=== PATIENT | female | born 1970 | race Caucasian/White ===

== ENCOUNTER 2017-03-20 18:25 | Emergency (ER) | payer MEDICAID ==
[~2017-03-20] VITALS: Wt 65.0 kg
[~2017-03-20 18:25] MED LIST: CIPR500T21 PO; DOCU-159 PO; FAMO-96 PO
[2017-03-20] MEDS ORDERED: METF1000 PO (22:00)
[2017-03-20] MEDS ORDERED: OMEP20CA16 PO (22:00)
[2017-03-20] MEDS ORDERED: LISI10TA2 PO (22:01)
[2017-03-20] MEDS ORDERED: ATOR10TA65 PO (22:01)
--- NOTE | 2017-03-20 22:17 | ERA ---
ER Documentation Chief Complaint Date/Time DATE: 03/20/17 TIME: 22:17 Chief Complaint Sore throat HPI The patient is a 46-year-old female, presenting with acute sore throat for 1 day , denies fever, chills, neck pain, chest pain, dyspnea, abdominal pain, vomiting , dysuria, diarrhea. She does not smoke nor drink Past medical history: Hypertension, dyslipidemia, diabetes mellitus Past surgical history: Hysterectomy ROS All systems reviewed and are negative except as per history of present illness. Medications Home Meds Active Scripts Ibuprofen* (Ibuprofen*) 600 Mg Tablet, 600 MG PO Q6, #20 TAB Prov:GUIDO BIRD MD 03/20/17 Reported Medications Lisinopril* (Lisinopril*) 10 Mg Tablet, 10 MG PO DAILY, #30 TAB 03/20/17 Atorvastatin Calcium (Atorvastatin Calcium) 10 Mg Tablet, 10 MG PO QHS, #30 TAB 03/20/17 Omeprazole* (Omeprazole*) 20 Mg Capsule.dr, 20 MG PO DAILY, #30 CAP 03/20/17 Metformin Hcl* (Metformin Hcl*) 1,000 Mg Tablet, 1000 MG PO WITH BREAKFAST DINNE , #60 TAB 03/20/17 Discontinued Scripts Ciprofloxacin/Ciprofloxa HCl (Ciprofloxacin ER 500 mg Tablet) 500 Mg Tbmp.24hr, 500 MG PO BID for 7 Days, #14 TAB Prov:MANAGUELOD,MILADIS P ACCESS NURSE 05/04/16 Docusate Sodium* (Docusate Sodium*) 100 Mg Capsule, 100 MG PO BID, #60 CAP Prov:MANAGUELOD,MILADIS P ACCESS NURSE 05/04/16 Famotidine* (Pepcid*) 20 Mg Tablet, 20 MG PO BID for 10 Days, #20 TAB Prov:MANAGUELOD,MILADIS P ACCESS NURSE 05/04/16 Allergies Allergies: Coded Allergies: No Known Drug Allergies (Verified Allergy, Unknown, 03/20/17) PMhx/Soc History of Surgery: No Hx Neurological Disorder: No Hx Respiratory Disorders: No Hx Cardiac Disorders: No Hx Psychiatric Problems: No Hx Miscellaneous Medical Probl: Yes (dm) Hx Alcohol Use: No Hx Substance Use: No Hx Tobacco Use: No Smoking Status: Never smoker Physical Exam Vitals Vital Signs Date Time Temp Pulse Resp B/P Pulse Ox O2 Delivery O2 Flow Rate FiO2 03/20/17 21:45 98.1 77 16 113/77 99 Room Air 03/20/17 18:54 99.1 109 24 171/104 99 Physical Exam Const: No acute distress. Head: Atraumatic. Eyes: Normal Conjunctiva. ENT: Normal External Ears, Nose and Mouth.Normal oropharynx, no erythema, no exudate Neck: Full range of motion. No meningismus. Resp: Clear to auscultation bilaterally. Cardio: Regular rate and rhythm. Abd: Soft, non distended, normal bowel sounds, non tender. Skin: No petechiae or rashes. Back: No midline or flank tenderness. Ext: No cyanosis, or edema. Neur: Awake and alert. No focal deficit Psych: Normal Mood and Affect. Results 24 hrs Laboratory Tests Test 03/20/17 23:05 Bedside Glucose 238mg/dL Current Medications Medications (Trade) Dose Ordered Sig/Aicha Route PRN Reason Start Time Stop Time Status Last Admin Dose Admin Acetaminophen/ Hydrocodone Bitart ([place] (5/325)) 1 tab ONCE ONCE PO 03/20/17 23:00 03/20/17 23:01 DC 03/20/17 23:15 Ondansetron HCl (Zofran Odt) 4 mg ONCE STAT ODT 03/20/17 22:52 03/20/17 22:53 DC 03/20/17 23:14 Procedures/MDM MEDICAL MAKING DECISION: The patient is a 46-year-old male female, presenting with acute sore throat, most likely viral syndrome. She was treated with [place] 5 mg p.o. for pain and Zofran ODT for nausea with good response, Accu-Chek 238 The differential diagnoses considered include but are not limited to pharyngitis , viral syndrome, influenza, pneumonia, anxiety attack, panic attack Departure Diagnosis: Primary Impression: Sore throat (viral) Condition: Good Comments She was discharged with Motrin I discussed the findings with the patient. I advised the patient to follow-up with the primary physician in about 1-2 days, sooner if needed and return if any concern. GUIDO BIRD MD Mar 20, 2017 22:17
[2017-03-20] MEDS ORDERED: ONDANSETRON (ODT) 4 MG TAB ODT STA (22:52)
[2017-03-20] MEDS ORDERED: IBUP-1542 PO (22:54)
[2017-03-20] MEDS ORDERED: HYDROCODONE/APAP (5/325) TAB PO ONE (23:00)
[2017-03-20 23:30] VITALS: BP 98/68; PULSE 88; RESP 15; TEMP 97.9
== END 2017-03-20 23:30 | disposition home or self-care (01) ==
LOC: FTE 18:25 → E/R 23:30
DX: J02.9 Acute pharyngitis, unspecified (principal); E11.9 Type 2 diabetes mellitus without complications; I10 Essential (primary) hypertension; Z79.84 Long term (current) use of oral hypoglycemic drugs
CPT/HCPCS: 82962; Z7502; Z7610; 99283

== ENCOUNTER 2017-06-14 17:54 | Emergency (ER) | payer MEDICAID ==
[~2017-06-14] VITALS: Ht 149.9 cm; Wt 67.6 kg
[~2017-06-14 17:54] MED LIST changes: +ATOR10TA65 PO; -CIPR500T21 PO; -DOCU-159 PO; -FAMO-96 PO; +IBUP-1542 PO; +LISI10TA2 PO; +METF1000 PO; +OMEP20CA16 PO
[2017-06-14 17:59] VITALS: Ht 149.9 cm; Wt 67.6 kg
[2017-06-14 19:17] LABS: URINE BLOOD (Dip) POC Trace-lysed (NEGATIVE)
[2017-06-14] MEDS ORDERED: ACETAMINOPHEN 325 MG TAB PO ONE (19:30)
[2017-06-14] MEDS ORDERED: IBUP-1542 PO (20:02)
--- NOTE | 2017-06-14 20:06 | ERD ---
ER Documentation Chief Complaint Chief Complaint RIGHT HAND PAIN HPI This 38-year-old female sustained a mechanical fall today. She landed on her right hand. She is pain in the middle of her right hand and primarily on her right middle finger. She has restricted range of motion due to pain. Pain primarily areas on her volar aspect of her right middle finger PIP joint. She denies any weakness. There is no redness or bleeding. She denies any head injury, neck pain, additional complaints to her fall today. ROS All systems reviewed and are negative except as per history of present illness. Medications Home Meds Active Scripts Ibuprofen* (Motrin*) 600 Mg Tab, 600 MG PO Q6, #20 TAB Prov:SAYRA BROWN MD 06/14/17 Ibuprofen* (Ibuprofen*) 600 Mg Tablet, 600 MG PO Q6, #20 TAB Prov:GUIDO BIRD MD 03/20/17 Reported Medications Lisinopril* (Lisinopril*) 10 Mg Tablet, 10 MG PO DAILY, #30 TAB 03/20/17 Atorvastatin Calcium (Atorvastatin Calcium) 10 Mg Tablet, 10 MG PO QHS, #30 TAB 03/20/17 Omeprazole* (Omeprazole*) 20 Mg Capsule.dr, 20 MG PO DAILY, #30 CAP 03/20/17 Metformin Hcl* (Metformin Hcl*) 1,000 Mg Tablet, 1000 MG PO WITH BREAKFAST DINNE , #60 TAB 03/20/17 Allergies Allergies: Coded Allergies: No Known Drug Allergies (Verified Allergy, Unknown, 03/20/17) PMhx/Soc History of Surgery: Yes (c/section x3) Hx Neurological Disorder: No Hx Respiratory Disorders: No Hx Cardiac Disorders: No Hx Psychiatric Problems: No Hx Miscellaneous Medical Probl: Yes (iddm) Hx Alcohol Use: No Hx Substance Use: No Hx Tobacco Use: No Smoking Status: Never smoker Physical Exam Vitals Vital Signs Date Time Temp Pulse Resp B/P Pulse Ox O2 Delivery O2 Flow Rate FiO2 06/14/17 17:59 99.7 105 17 138/82 99 Physical Exam Const: [] Alert, [id number] per Head: Atraumatic Eyes: Normal Conjunctiva ENT: Normal External Ears, Nose and Mouth. Neck: Full range of motion..~ No meningismus. Resp: Clear to auscultation bilaterally Cardio: Regular rate and rhythm, no murmurs Abd: Soft, non tender, non distended. Normal bowel sounds Skin: No petechiae or rashes Back: No midline or flank tenderness Ext: No cyanosis, or edema. Tenderness of the right middle finger diffusely around the PIP joint. There is mild restricted range of motion due to pain but no deficits appreciated. Some tenderness diffusely on the right hand as well. There is no wrist tenderness or elbow tenderness. Neur: Awake and alert Psych: Normal Mood and Affect Results 24 hrs Laboratory Tests Test 06/14/17 19:17 06/14/17 19:18 Bedside Urine pH (LAB) 5.5 Bedside Urine Protein (LAB) Negative Bedside Urine Glucose (UA) 0.50% Bedside Urine Ketones (LAB) Negative Bedside Urine Blood Trace-lysed Bedside Urine Nitrite (LAB) Negative Bedside Urine Leukocyte Esterase (L Negative Bedside Glucose 236mg/dL Current Medications Medications (Trade) Dose Ordered Sig/Aicha Route PRN Reason Start Time Stop Time Status Last Admin Dose Admin Acetaminophen (Tylenol Tab) 650 mg ONCE ONCE PO 06/14/17 19:30 06/14/17 19:31 DC 06/14/17 19:16 Procedures/MDM X-ray right hand 3V interpreted by me: Scaphoid: [Normal] Bones: Appears to be a tiny avulsion fracture of the distal portion of the right middle finger PIP joint. Joints: [No dislocation] Foreign body: [None]. Avulsion fracture of the distal portion of right middle finger PIP joint. Patient is placed in a right middle finger metal splint. Patient is neurovascular intact after splint results and Franc bandage and was neurovascular intact after the splint. Patient was placed in right arm sling. She presents with signs and symptoms of right hand contusion and a small avulsion fracture right middle finger. She will be discharged home with primary care follow-up in orthopedic evaluation within the next week. She should recheck for new or worsening symptoms such as redness or fevers with primary care doctor. Departure Diagnosis: Primary Impression: Finger fracture, right Encounter type: initial encounter Finger: middle finger Fracture type: closed Phalanx: middle Fracture alignment: nondisplaced Qualified Code: S62.652A - Closed nondisplaced fracture of middle phalanx of right middle finger , initial encounter Additional Impression: Injury of hand Encounter type: initial encounter Laterality: right Qualified Code: S69.91XA - Injury of right hand, initial encounter Condition: Stable Patient Instructions: Fracture, Finger (Closed), Sprain Hand Referrals: NIKOLAI LEWIS MD [facility] Additional Instructions: hay uin poquito fracture en dedo. Va al garcia doctor/ specialista para mas evaluacon en el proximo semana. posiblemente necesita autorizado de garcia doctor primario para specialista. Regresa para fiebre, o mas o nueva simptomas. SAYRA BROWN MD Jun 14, 2017 20:06
--- NOTE | 2017-06-14 20:07 | RADRPT ---
PROCEDURE: XR Hand. CLINICAL INDICATION: Trauma. Pain. TECHNIQUE: Three views of the right hand were obtained. COMPARISON: No prior studies are available for comparison. FINDINGS: No fracture is identified. Joint relationships are maintained. Bone mineralization is within yang l limits. Soft tissues are unremarkable. IMPRESSION: No acute fracture. RPTAT: HMVK .Cooper Mello MD, MD Date Time Electronically viewed and signed by .Cooper Mello MD, on 06/14/2017 20:07 .K/
[2017-06-14 20:25] VITALS: PULSE 88; RESP 20; TEMP 98.2
== END 2017-06-14 20:25 | disposition home or self-care (01) ==
LOC: FTE 17:54
DX: S62.652A Nondisplaced fracture of middle phalanx of right middle finger, initial encounter for closed fracture (principal); E11.9 Type 2 diabetes mellitus without complications; W18.39XA Other fall on same level, initial encounter; Y92.9 Unspecified place or not applicable; Z79.84 Long term (current) use of oral hypoglycemic drugs
CPT/HCPCS: 29130; 73130; 81003; 82962; Z7502; Z7610

== ENCOUNTER 2017-09-02 17:22 | Emergency (ER) | END 2017-09-02 21:05 | disposition home or self-care (01) ==

== ENCOUNTER 2018-03-10 15:31 | Emergency (ER) | END 2018-03-10 17:14 | disposition home or self-care (01) ==